=== PATIENT | male | born 1970 | race Asian ===

== ENCOUNTER 2018-10-24 08:25 | Emergency (ER) | payer SELFPAY ==
[~2018-10-24] VITALS: Wt 78.0 kg
[2018-10-24] MEDS ORDERED: ONDANSETRON 4 MG INJ IV STA (08:40)
[2018-10-24] MEDS ORDERED: morphine 4 MG/ML VIAL IV STA (08:40)
--- NOTE | 2018-10-24 08:46 | ERD ---
ER Documentation Chief Complaint Chief Complaint ERECTION IS NOT GOING AWAY AFTER MEDS TAKEN YESTERDAY 2300 HPI This is a 47-year-old male who presents for an erection that is been ongoing for almost 12 hours now, since 11 PM yesterday after he took a medication that was purchased [id number] at a gas station, for sexual arousal. He denies similar episodes, denies taking his medication in the past, endorses pain to his penis currently. He has not had trauma. ROS All systems reviewed and are negative except as per history of present illness. Medications Home Meds Reported Medications Atorvastatin Calcium* (Atorvastatin Calcium*) Unknown Strength Tablet, 1 TAB PO QHS, #30 TAB 10/24/18 Allergies Allergies: Coded Allergies: No Known Allergy (Unverified , 10/24/18) Physical Exam Vitals Vital Signs Date Temp Pulse Resp B/P (MAP) Pulse Ox O2 O2 Flow FiO2 Time Delivery Rate 10/24/18 98.1 92 18 152/92 99 08:27 (112) Physical Exam Const: No acute distress Head: Atraumatic Eyes: Normal Conjunctiva ENT: Normal External Ears, Nose and Mouth. Neck: Full range of motion. No meningismus. Resp: Clear to auscultation bilaterally Cardio: Regular rate and rhythm, no murmurs Abd: Soft, non tender, non distended. Normal bowel sounds exam: Erection is noted, with no purulent drainage Skin: No petechiae or rashes Back: No midline or flank tenderness Ext: No cyanosis, or edema Neur: Awake and alert Psych: Normal Mood and Affect Results 24 hrs Current Medications Medications Dose Sig/Yessi Start Time Status Last (Trade) Ordered Route PRN Stop Time Admin Dose Reason Admin Morphine 4 mg ONCE STAT 10/24/18 DC 10/24/18 Sulfate IV 08:40 10/24/18 08:57 (morphine) 08:43 Ondansetron 4 mg ONCE STAT 10/24/18 DC 10/24/18 HCl (Zofran IV 08:40 10/24/18 08:57 Inj) 08:43 Lidocaine 20 ml ONCE ONCE 10/24/18 DC (Xylocaine SC 09:00 10/24/18 1% (Mdv) 20 09:06 ml) INJECT 1 ML ONCE ONCE 10/24/18 DC Phenylephrine AT A TIME... ZFS 09:30 10/24/18 HCl 09:31 (Ruben-Synephri ne Inj Syg) Procedures/MDM This is a 30-year-old male who presents for evaluation of priapism. Patient was seen immediately, consulted urology, Dr. Magdaleno. Recommended treatment for priapism, with injection of phenylephrine and aspiration. Approximately 20 mL's of red blood were aspirated, and injected 2 cc of phenylephrine, with concentration prepared by pharmacy. Detumescence was achieved, and compression was applied to prevent hematoma, strict return precautions were given to patient, at discharge she was in no acute distress Critical Care Time: 15 minutes Treatments/Evaluations: Close monitoring and treatment of unstable vital signs, cardiorespiratory, and neurologic status, while maintaining tight balance of fluid, respiratory, and cardiac interventions. This time includes discussing the case with the patient and the patient's family. This time does not include all procedures stated elsewhere in this record. This time also includes reviewing old records, labs and radiological studies. This time includes examining and re- examining the patient. Additionally, this time also includes arranging care with admitting and consulting physicians. Abscess Incision and aspiration Location: Dorsal aspect of penis at 10 o'clock position Anesthesia: [Local 1% Lidocaine without epinephrine] Technique: Aspiration, with withdrawal of 20 cc of blood, injecting 2 cc of phenylephrine Departure Diagnosis: Primary Impression: Priapism Condition: Stable MARGOT NIELSON MD Oct 24, 2018 08:46
[2018-10-24] MEDS ORDERED: LIDOCAINE 1% (MDV) 20 ML INJ SC ONE (09:00)
[2018-10-24] MEDS ORDERED: PHENYLephrine (100 MCG/ML) 5ML SYG ZFS ONE (09:30)
[2018-10-24] MEDS ORDERED: ATOR20TA38 PO (10:23)
[2018-10-24 10:56] VITALS: BP 140/76; PULSE 84; RESP 18
== END 2018-10-24 11:00 | disposition home or self-care (01) ==
LOC: E/R 08:25
DX: N48.30 Priapism, unspecified (principal)
CPT/HCPCS: 10060; 96374; 96375; 99285; J2270; J2370; J2405